=== PATIENT | male | born 1980 | race Caucasian/White ===

== ENCOUNTER 2019-02-15 06:03 | Emergency (ER) | payer MEDICAID ==
[~2019-02-15] VITALS: Ht 177.8 cm; Wt 116.1 kg
[2019-02-15 06:11] VITALS: Ht 177.8 cm; Wt 116.1 kg
[2019-02-15 08:48] VITALS: BP 151/100
== END 2019-02-15 08:48 | disposition home or self-care (01) ==
LOC: ED 06:03
DX: S46.911A Strain of unspecified muscle, fascia and tendon at shoulder and upper arm level, right arm, initial encounter (principal); X58.XXXA Exposure to other specified factors, initial encounter; Y93.89 Activity, other specified; Y92.89 Other specified places as the place of occurrence of the external cause; Y99.8 Other external cause status
CPT/HCPCS: J1885